=== PATIENT | male | born 1975 | race Hispanic/Latino ===

== ENCOUNTER 2018-10-12 07:05 | Day surgery (SDC) | payer BC ==
[2018-10-09 14:08] LABS: Absolute Lymphocytes (CBC) 2.6 K/uL (0.7-4.9); Absolute Monocytes 0.5 K/uL (0.1-1.3); Absolute Neutrophil 4.1 K/uL (1.8-8.0); Eosinophils % 1.8 % (0-4.4); Hematocrit 45.2 % (39.6-49.0); Lymphocytes % 34.9 % (15.3-44.8); MPV 7.6 fL (7.6-11.3); RBC Red Blood Cell Count 4.81 M/uL (4.33-5.43)
[2018-10-09 14:17] LABS: Potassium 3.8 mmol/L (3.5-5.1)
--- NOTE | 2018-10-09 14:36 | RAD REPORT ---
EXAM DESCRIPTION: RAD - Chest Pa And Lat (2 Views) - 10/09/2018 2:10 pm CLINICAL HISTORY: Preop for surgery Chest pain. COMPARISON: No comparisons FINDINGS: The lungs are clear. The heart is normal in size. No displaced fractures. IMPRESSION: No acute or concerning finding suspected.
--- NOTE | 2018-10-09 21:21 | EKG ---
Test Date: 2018-10-09 Test Time: 13:49:13 [employer] Coordinator: RAY MEASUREMENT RESULTS: Intervals: Rate: 71 PA: 150 QRSD: 92 QT: 370 QTc: 402 Eddy: P: 5 PA: 150 QRS: 69 T: 18 INTERPRETIVE STATEMENTS: Normal sinus rhythm Normal ECG Compared to ECG 06/09/2015 14:49:48 No significant changes Electronically Signed On 10-09-18 21:20:17 AUTOCAD by Drew Dumont
--- OUTSIDE RECORDS SUMMARY | 2018-10-12 07:08 | XMS REPORT ---
:1975 [facility] Address [address] [place] [address] Dr. Zimmer [address] [place] [id number] Care Team Providers Name Role Phone Unavailable Unavailable Unavailable Problems This patient has no known problems. Allergies, Adverse Reactions, Alerts This patient has no known allergies or adverse reactions. Medications This patient has no known medications.
[2018-10-12] MEDS ORDERED: Ringers Lactate 1,000 ML IV ONE (07:27)
[2018-10-12] MEDS ORDERED: CEFAZOLIN 1GM (PREMIX IV) 1 GM/50 ML BAG ONE (07:27)
[2018-10-12] MEDS ORDERED: BUPIVACAINE 0.5% PF 10 ML VIAL ONE (08:24)
[2018-10-12] MEDS ORDERED: PROPOFOL 200 MG/20 ML VIAL IV ONE (08:30)
[2018-10-12] MEDS ORDERED: MIDAZOLAM HCL 2 MG/2 ML INJ ONE (08:30)
[2018-10-12] MEDS ORDERED: LIDOCAINE 1% MPF 5 ML VIAL ONE (08:30)
[2018-10-12] MEDS ORDERED: FENTANYL CITR 100 MCG/2 ML ONE (08:30)
[2018-10-12] MEDS ORDERED: KETOROLAC 30 MG/ML INJ ONE (09:23)
[2018-10-12] MEDS ORDERED: ONDANSETRON 4 MG/2 ML VIAL ONE (09:25)
--- NOTE | 2018-10-12 09:27 | P.BOP ---
Preoperative diagnosis: tender back subq masses s/p cellulitis and abscess Postoperative diagnosis: same Primary procedure: 1. Excisisional biopsy of tender Mid Back subq mass 3x3cm Secondary procedure: 2. Excisisional biopsy of tender upper back subq mass 2x2cm Maintenance Manager: Philomena Rosa) Estimated blood loss: <10cc Specimen: masses Findings: subq Masses Anesthesia: General Complications: None Transferred to: Recovery Room Condition: Good
[2018-10-12] MEDS ORDERED: CODEINE 30MG/APAP 300MG TAB ONE (10:54)
--- NOTE | 2018-10-12 21:30 | OP ---
Date of Procedure: 10/12/2018 Surgeon: Freddy He MD Process Laboratory Specialist: Philomena Rosa. Preoperative Diagnosis: Tender back subcutaneous mass, status post cellulitis and abscess. Postoperative Diagnosis: Tender back subcutaneous mass, status post cellulitis and abscess. Procedures: 1.Excisional biopsy of tender mid back subcutaneous mass, 3 x 3 cm. 2.Excisional biopsy of tender upper back subcutaneous mass, 2 x 2 cm. Specimen: Masses. Anesthesia: General plus local. Indications: This is a case of a 43-year-old patient, comes to us with 2 masses tender on the back; one of them recently had to have an I and D and packing because of cellulitis and abscess. Now, he w ants that mass excised and he has been doing packing and is hospitalized. The masses are still prese nt, so he wants them excised both of them. Benefits, alternatives, and risks of excision were fully explained which include but are not limited to infection, bleeding, damage to adjacent structures, an esthesia complication, recurrence, RI, and even . He also understands this may not relieve the symptoms, he might need more than one surgical intervention. He understood, signed a consent. The a shaye of concern was marked by me and the patient in the holding room. Description Of Procedure: The patient was brought to the operating room, placed in supine position. Anesthesia was done without complication. The patient was placed in lateral decubitus position with proper protection. Time-out was call. Back area was prepped and draped in a sterile fashion. Each procedure was done individually in different incisions with the same technique. We started with the mid back area. A wedge incision was made in the skin all the way down to full thickness and also th rough the subcutaneous tissue since there was a scar tissue present there from a previous I and D and previous infection. We did not see any pus. It goes all the way down to fascia of the muscle. It does not involve the muscle. The area was irrigated. The same was done with the incision on the upp er back area. No other masses palpated. The mid back area was closed and the also the upper back ar ea was closed with layered closure with a combination of a chromic in the deep tissue, mid tissue, an d then the skin with a 2-0 nylon. The patient tolerated each procedure well. Sponge count and instr ument counts were correct. The patient was sent to recovery in stable condition. SHAQ/JIGNESH Voice ID: [id number] Report ID: [id number]
--- NOTE | 2018-10-12 21:36 | DS ---
Date of Discharge: 10/12/2018 Diagnosis: Tender back subcutaneous masses, status post cellulitis and abscess. Procedure: Excisional biopsy of tender mid back and upper back subcutaneous masses. Disposition: Home. Activities: As tolerated. No heavy lifting. Followup: Follow up in my office in 1 week. Call for appointment to [phone]. Wound Care: Keep the area dry for 48 hours, then may shower and then may use triple antibiotics over the area. Medications: Include Bactrim DS p.o. b.i.d. and Tylenol No. 3 q.4 hours p.r.n. pain. SHAQ/JIGNESH Voice ID: [id number] Report ID: [id number]
== END 2018-10-12 11:15 | disposition home or self-care (01) ==
LOC: OR 07:05
PROVIDERS: ATTEND Surgery
PROC: 0JB70ZZ Excision of Back Subcutaneous Tissue and Fascia, Open Approach (ICD-10-PCS; 2018-10-12)
PROC: 0JB70ZZ Excision of Back Subcutaneous Tissue and Fascia, Open Approach (ICD-10-PCS; principal; 2018-10-12 08:30)
DX: L72.0 Epidermal cyst (principal); E66.9 Obesity, unspecified; Z68.38 Body mass index [BMI] 38.0-38.9, adult; Z82.49 Family history of ischemic heart disease and other diseases of the circulatory system
CPT/HCPCS: 36415; 71046; 80048; 85025; 88304; 88305; 93005; J0690; J2250; J2405; J2704; J3010